=== PATIENT | male | born 1995 | race Caucasian/White ===

== ENCOUNTER → 2024-07-26 09:10 | Outpatient (REF) | payer BC, SELFPAY ==
[2024-07-26 10:33] LABS: Hematocrit 42.9 % (39.0-52.0); Hemoglobin 15.4 g/dL (13.0-18.0); Mean Corp Hgb Conc. 35.9 g/dL (33.0-37.0); Mean Corpuscular Volume 83.5 fL (80.0-94.0); Platelet Count 166 10^3/uL (130-400); Red Blood Cell Count 5.14 10^6/uL (4.70-6.10); Red Cell Dist. Width 12.1 % (11.5-14.5); White Blood Cell Count 4.3 10^3/uL (4.8-10.8)
[2024-07-26 11:39] LABS: Hepatitis B Surface Antigen Negative (Negative)
[2024-07-26 11:50] LABS: ALT (SGPT) 28 U/L (0-50); AST (SGOT) 35 U/L (17-59); Albumin 5.1 g/dl (3.5-5.0); Alkaline Phosphatase 50 U/L (38-126); Blood Urea Nitrogen 14 mg/dl (9-20); Carbon Dioxide 23 mmol/L (22-30); Chloride 103 mmol/L (98-107); Glucose 83 mg/dl (70-99); HDL Cholesterol 37 mg/dl; LDL Cholesterol, Calculated 113 mg/dl; Potassium 4.2 mmol/L (3.5-5.1); Sodium 143 mmol/L (135-145); Total Bilirubin 1.2 mg/dl (0.2-1.3); Total Cholesterol 167 mg/dl (50-199); Total Protein 7.5 g/dl (6.3-8.2); Triglyceride 88 mg/dl (10-149); Very Low Density Lipoprotein 17 mg/dl (0-30); eGFR > 60.00
[2024-07-26 12:21] LABS: HIV Combo Negative (Negative)
[2024-07-26 12:25] LABS: Hepatitis B Surface Antibody Positive; Hepatitis C Antibody Negative (Negative)
[2024-07-26 14:04] LABS: Hepatitis A Antibody, Total Negative (Negative)
== END ==
LOC: REG 09:10
PROVIDERS: ATTENDING PHYSICIAN Family Medicine
DX: Z00.00 Encounter for general adult medical examination without abnormal findings (principal); Z72.52 High risk homosexual behavior
CPT/HCPCS: 36415; 80053; 80061; 85027; 86706; 86708; 86780; 86803; 87340; 87389; 87491; 87591

== ENCOUNTER → 2025-01-24 11:36 | Outpatient (REF) | payer BC, SELFPAY ==
[2025-01-28 22:04] LABS: HPV, High Risk Not Detected; HPV, High Risk Source Anal
== END ==
LOC: CLAB 11:36
PROVIDERS: ATTENDING PHYSICIAN Surgery
DX: Z72.52 High risk homosexual behavior (principal)
CPT/HCPCS: 87624; 88112

== ENCOUNTER → 2025-08-22 08:26 | Outpatient (REF) | payer BC, SELFPAY ==
[2025-08-22 13:36] LABS: Hepatitis B Surface Antigen Negative (Negative)
[2025-08-22 13:53] LABS: Hepatitis A Antibody, Total Negative (Negative)
[2025-08-22 14:13] LABS: Hepatitis C Antibody Negative (Negative)
== END ==
LOC: REG 08:26
PROVIDERS: ATTENDING PHYSICIAN Family Medicine
DX: Z11.3 Encounter for screening for infections with a predominantly sexual mode of transmission (principal)
CPT/HCPCS: 36415; 86706; 86708; 86780; 86803; 87340; 87389; 87491; 87591